=== PATIENT | male | born 1965 | race Caucasian/White ===

== ENCOUNTER → 2025-09-21 08:35 | Outpatient (REF) | payer OTHER, SELFPAY | LOC: HWRAD 08:35 | PROVIDERS: ATTENDING PHYSICIAN Physician Assistant Medical; FAMILY PHYSICIAN Family Medicine | DX: R07.89 Other chest pain (principal); M54.9 Dorsalgia, unspecified; I77.810 Thoracic aortic ectasia; R91.1 Solitary pulmonary nodule | CPT/HCPCS: 71250; 93306 ==